=== PATIENT | male | born 1945 | race Hispanic/Latino ===

== ENCOUNTER 2017-04-24 14:26 | Emergency (ER) | payer MEDICARE, MEDICAID ==
[~2017-04-24] VITALS: Ht 177.8 cm; Wt 70.0 kg
[~2017-04-24 14:26] MED LIST: ATENOLOL25 MG PO; FLEXERIL OR; HYDROCO/APAP1 TA9 PO; METFORMIN500 MG PO; METOPROL TAR25 MG PO; NAPROSYN500 MG OR; NEOMYCIN; OXYBUTYNIN5 MG PO; OXYCOD-APAP1 TA1 PO; SIMVASTATIN10 MG PO; TAMSULOSIN0.4 MG PO; TYLENOL 8 HOUR650 MG PO; ULTRAM50 M1 PO; XARELTO10 MG PO; ZOFRAN ODT4 MG PO
[2017-04-24 15:17] LABS: HEMATOCRIT 36.2 % (39.0-50.0); HEMOGLOBIN 12.1 g/dl (14.0-18.0); IMMATURE GRANULOCYTES 0.2 % (0.0-1.0); MEAN CELL VOLUME 92.1 fL CALC (80.0-100.0); MEAN CORPUSCULAR HGB 30.8 pG CALC (26.0-32.0); MEAN CORPUSCULAR HGB CONC 33.4 g/L CALC (32.0-36.0); NEUT# 3.28 thou/uL (1.82-7.42); RED BLOOD COUNT 3.93 mill/uL (4.70-6.10); RED CELL DISTRI WIDTH 13.8 % (11.5-15.5)
[2017-04-24 15:54] LABS: ALBUMIN 3.7 g/dL (3.2-5.0); ALKALINE PHOSPHATASE 65 u/l (38-126); AMYLASE 32 u/l (30-110); ANION GAP 15 (6-22 (CALC)); BILIRUBIN, TOTAL 0.9 mg/dL (0.0-1.4); BUN 14 mg/dL (8-23); BUN/CREATININE RATIO 18 (12-20 (CALC)); CARBON DIOXIDE 28 mmol/l (22-30); CHLORIDE 104 mmol/l (95-108); CREATININE 0.8 mg/dL (0.7-1.3); GFR > 60 ML/MIN (>=60 (CALC)); GFR FOR AFR.AMER. > 60 ML/MIN (>=60 (CALC)); GLUCOSE 110 mg/dL (82-115); LIPASE 42 u/l (23-300); SGOT/AST 11 u/l (19-48); SGPT/ALT 21 u/l (11-66); SODIUM 143 mmol/l (137-146); TOTAL PROTEIN 6.8 g/dL (6.3-8.2)
[2017-04-24 16:06] LABS: MYOGLOBIN 30 ng/mL (0 - 121)
[2017-04-24 16:54] VITALS: BP 122/80
[2017-05-11] MEDS ORDERED: OMEPRAZOLE20 MG PO (07:52)
[2017-05-11] MEDS ORDERED: PERCOCET1 TA2 PO (09:37)
== END 2017-04-24 17:00 | disposition left against medical advice (07) ==
LOC: ED 14:26
PROVIDERS: Emergency Medicine
DX: R07.9 Chest pain, unspecified (principal); I10 Essential (primary) hypertension; I48.91 Unspecified atrial fibrillation; E78.00 Pure hypercholesterolemia, unspecified; N40.0 Benign prostatic hyperplasia without lower urinary tract symptoms; Z91.19 Patient's noncompliance with other medical treatment and regimen

== ENCOUNTER → 2017-05-11 | Day surgery (SDC) | payer MEDICARE, MEDICAID ==
[~2017-05-11] VITALS: Ht 177.8 cm; Wt 73.0 kg
[~2017-05-11] MED LIST changes: +OMEPRAZOLE20 MG PO; +PERCOCET1 TA2 PO
[2017-05-11 11:17] VITALS: BP 116/78
== END ==
LOC: ORM 04-17 09:00
PROVIDERS: ATTEND Surgery
PROC: 0YU50JZ Supplement Right Inguinal Region with Synthetic Substitute, Open Approach (ICD-10-PCS; principal; 2017-05-11)
DX: K40.90 Unilateral inguinal hernia, without obstruction or gangrene, not specified as recurrent (principal)
CPT/HCPCS: J2710

== ENCOUNTER 2017-08-01 12:08 | Emergency (ER) | payer MEDICARE, MEDICAID ==
[~2017-08-01] VITALS: Ht 177.8 cm; Wt 80.0 kg
[2017-08-01 13:50] LABS: INFLUENZA A NONE DETECTED (NONE DETECT); INFLUENZA B NONE DETECTED (NONE DETECT)
[2017-08-01] MEDS ORDERED: ZITHROMAX250 MG PO (14:33)
[2017-08-01 14:36] VITALS: BP 128/75
== END 2017-08-01 15:10 | disposition home or self-care (01) ==
LOC: ED 12:08
PROVIDERS: Emergency Medicine
DX: M79.89 Other specified soft tissue disorders (principal); J06.9 Acute upper respiratory infection, unspecified; I10 Essential (primary) hypertension; I48.91 Unspecified atrial fibrillation; E78.00 Pure hypercholesterolemia, unspecified; M79.605 Pain in left leg

== ENCOUNTER 2020-05-19 10:23 | Emergency (ER) | payer MEDICARE, MEDICAID ==
[~2020-05-19] VITALS: Ht 177.8 cm; Wt 72.0 kg
[~2020-05-19 10:23] MED LIST changes: +ZITHROMAX250 MG PO
[2020-05-19] MEDS ORDERED: NAPROXEN500 MG PO (10:42)
[2020-05-19 10:53] VITALS: BP 125/91
[2020-05-19] MEDS ORDERED: DICLOFENAC SODIUM1 % (11:04)
== END 2020-05-19 10:54 | disposition home or self-care (01) ==
LOC: ED 10:23
DX: M19.012 Primary osteoarthritis, left shoulder (principal); I10 Essential (primary) hypertension

== ENCOUNTER 2021-12-02 13:14 | Emergency (ER) | payer MEDICARE, MEDICAID ==
[2021-12-02] VITALS (8 sets, daily range): BP systolic 81–142; BP diastolic 62–95
[~2021-12-02] VITALS: Ht 170.2 cm; Wt 82.6 kg
[~2021-12-02 13:14] MED LIST changes: +DICLOFENAC SODIUM1 % TOP; +FLEXERIL5 M1 PO; +GABAPENTIN300 M2 PO; +NAPROXEN500 MG PO; +OXYBUTYNIN CHLO10 MG PO; +ULTRAM50 MG PO; +XARELTO20 MG PO
[2021-12-02 14:02] LABS: HEMATOCRIT 41.8 % (39.0-50.0); MEAN CELL VOLUME 97.2 fL CALC (80.0-100.0); MEAN CORPUSCULAR HGB 33.5 pG CALC (26.0-32.0); MEAN CORPUSCULAR HGB CONC 34.4 g/dL CAL (32.0-36.0); NEUT# 2.95 thou/uL (1.82-7.42); RED BLOOD COUNT 4.3 mill/uL (4.70-6.10)
[2021-12-02 14:03] LABS: HEMOGLOBIN 14.4 g/dl (14.0-18.0)
[2021-12-02] MEDS ORDERED: SIMVASTATIN10 MG PO (14:14)
[2021-12-02] MEDS ORDERED: XARELTO20 MG PO (14:14)
[2021-12-02 14:15] LABS: ALBUMIN 3.9 g/dL (3.2-5.0); ALKALINE PHOSPHATASE 50 u/l (38-126); ANION GAP 9 (6-22 (CALC)); BILIRUBIN, TOTAL 1.3 mg/dL (0.0-1.4); BUN 13 mg/dL (8-23); BUN/CREATININE RATIO 14 (12-20 (CALC)); CARBON DIOXIDE 27 mmol/l (22-30); CHLORIDE 106 mmol/l (95-108); CREATININE 0.9 mg/dL (0.7-1.3); GFR > 60 ML/MIN (>=60 (CALC)); GFR FOR AFR.AMER. > 60 ML/MIN (>=60 (CALC)); LIPASE 40 u/l (23-300); POTASSIUM 3.6 mmol/l (3.5-5.1); SGOT/AST 23 u/l (19-48); SODIUM 138 mmol/l (137-146); TOTAL PROTEIN 6.6 g/dL (6.3-8.2)
[2021-12-02] MEDS ORDERED: TAMSULOSIN0.4 MG PO (14:15)
[2021-12-02] MEDS ORDERED: METOPROL TAR25 MG PO (14:15)
[2021-12-02] MEDS ORDERED: OXYBUTYNIN CHLO10 MG PO (14:15)
[2021-12-02 14:18] LABS: INTERNATIONAL NORMALIZED RATIO 1.3 RATIO (0.7-1.3); PROTHROMBIN TIME 13.2 SECONDS (9.0-12.5)
[2021-12-02 14:26] LABS: MYOGLOBIN 42 ng/mL (0 - 121)
[2021-12-02] MEDS ORDERED: ONDANSETRON4 MG PO (16:04)
== END 2021-12-02 16:35 | disposition home or self-care (01) ==
LOC: ED 13:14
PROVIDERS: Nurse Practitioner
DX: R51.9 Headache, unspecified (principal); I10 Essential (primary) hypertension; I48.91 Unspecified atrial fibrillation; R11.0 Nausea; Z79.01 Long term (current) use of anticoagulants

== ENCOUNTER 2024-05-03 09:37 | Emergency (ER) | payer MEDICARE, MEDICAID ==
[~2024-05-03] VITALS: Ht 172.7 cm; Wt 77.0 kg
[2024-05-03] VITALS (9 sets, daily range): BP systolic 118–155; BP diastolic 79–96
[~2024-05-03 09:37] MED LIST changes: +DICLOFENAC SODIUM2 % TD; +ERYTHROMYCIN O3.5 GM OU; +MEDDOSEPAK PO; +ONDANSETRON4 MG PO; +PAXLOVID PO; +PREDNISONE10 MG PO; +TRAMADOL HYDROC50 M1 PO; +ZPAK PO
[2024-05-03] MEDS ORDERED: KETOROLAC TROMETHAMINE 30 MG/ML SDV IV ONE (10:00)
[2024-05-03] MEDS ORDERED: SODIUM CHLORIDE 0.9% 1,000 ML IV ONE (10:00)
[2024-05-03 10:18] LABS: BASO% 1.4 % (0-3); EOS% 2.9 % (0-8); HEMATOCRIT 41.7 % (39.0-50.0); IMMATURE GRANULOCYTES 0.2 % (0.0-5.0); LYMPH% 26.2 % (15-41); MEAN CELL VOLUME 98.6 fL CALC (80.0-100.0); MEAN CORPUSCULAR HGB 33.1 pG CALC (26.0-32.0); MEAN CORPUSCULAR HGB CONC 33.6 g/dL CAL (32.0-36.0); MONO% 10.9 % (2-13); NEUT# 2.58 thou/uL (1.82-7.42); NEUT% 58.4 % (42-76); RED BLOOD COUNT 4.23 mill/uL (4.70-6.10); RED CELL DISTRI WIDTH 12.5 % (11.5-15.5)
[2024-05-03 10:30] LABS: ALBUMIN 4.1 g/dL (3.2-5.0); BILIRUBIN, TOTAL 1.2 mg/dL (0.2-1.3); POTASSIUM 3.7 mmol/l (3.5-5.1); TOTAL PROTEIN 6.7 g/dL (6.3-8.2)
[2024-05-03 11:15] LABS: URINE BILIRUBIN - DIPSTICK Negative (NEGATIVE); URINE BLOOD DIPSTICK Trace-intact (NEGATIVE); URINE GLUCOSE - DIPSTICK >=1000 mg/dL (NEGATIVE); URINE KETONE Negative (NEGATIVE); URINE LEUK ESTERASE Negative (NEGATIVE); URINE NITRITE - DIPSTICK Negative (Negative); URINE PROTEIN - DIPSTICK Negative (NEG-TRACE)
[2024-05-03 11:17] LABS: URINE COLOR Yellow
== END 2024-05-03 12:49 | disposition home or self-care (01) ==
LOC: ED 09:37
PROVIDERS: Family Medicine
DX: R10.9 Unspecified abdominal pain (principal); I10 Essential (primary) hypertension; I48.91 Unspecified atrial fibrillation; E78.00 Pure hypercholesterolemia, unspecified

== ENCOUNTER 2024-07-28 12:41 | Emergency (ER) | payer MEDICARE, MEDICAID ==
[~2024-07-28] VITALS: Ht 172.7 cm; Wt 90.0 kg
[2024-07-28] VITALS (7 sets, daily range): BP systolic 117–136; BP diastolic 68–86
[2024-07-28 13:16] LABS: BASO% 1.1 % (0-3); EOS% 2.1 % (0-8); HEMATOCRIT 46.1 % (39.0-50.0); HEMOGLOBIN 15.2 g/dl (14.0-18.0); LYMPH% 26.1 % (15-41); MEAN CELL VOLUME 98.1 fL CALC (80.0-100.0); MEAN CORPUSCULAR HGB 32.3 pG CALC (26.0-32.0); MONO% 12.4 % (2-13); NEUT# 3.28 thou/uL (1.82-7.42); NEUT% 58.3 % (42-76); RED BLOOD COUNT 4.7 mill/uL (4.70-6.10); RED CELL DISTRI WIDTH 12.8 % (11.5-15.5)
[2024-07-28 13:30] LABS: ALBUMIN 4.3 g/dL (3.2-5.0); ALKALINE PHOSPHATASE 58 u/l (38-126); ANION GAP 15 (6-22 (CALC)); BILIRUBIN, TOTAL 1.5 mg/dL (0.2-1.3); BUN 25 mg/dL (8-23); BUN/CREATININE RATIO 27 (12-20 (CALC)); CARBON DIOXIDE 28 mmol/l (22-30); CHLORIDE 103 mmol/l (95-108); CREATININE 0.9 mg/dL (0.7-1.3); ESTIMATED GFR 87 ML/MIN (>=90 (CALC)); POTASSIUM 3.8 mmol/l (3.5-5.1); SGOT/AST 28 u/l (19-48); SODIUM 141 mmol/l (137-146)
[2024-07-28] MEDS ORDERED: ZPAK PO (14:05)
== END 2024-07-28 14:23 | disposition home or self-care (01) ==
LOC: ED 12:41
PROVIDERS: Family Medicine
DX: J06.9 Acute upper respiratory infection, unspecified (principal); I10 Essential (primary) hypertension; I48.91 Unspecified atrial fibrillation; E78.00 Pure hypercholesterolemia, unspecified; Z20.822 Contact with and (suspected) exposure to COVID-19

== ENCOUNTER 2024-09-26 20:36 | Emergency (ER) | payer MEDICARE, MEDICAID ==
[~2024-09-26] VITALS: Ht 172.7 cm; Wt 60.0 kg
[2024-09-26] MEDS ORDERED: KETOROLAC TROMETHAMINE 30 MG/ML SDV IM ONE (21:55)
[2024-09-26] MEDS ORDERED: ACETAMINOPHEN 500 MG TAB PO ONE (21:55)
[2024-09-26] MEDS ORDERED: VOLTAREN - GENE75 MG PO (22:58)
[2024-09-26 23:32] VITALS: BP 145/89
== END 2024-09-26 23:32 | disposition home or self-care (01) ==
LOC: ED 20:36
DX: M17.11 Unilateral primary osteoarthritis, right knee (principal); I10 Essential (primary) hypertension; I48.91 Unspecified atrial fibrillation; E78.5 Hyperlipidemia, unspecified

== ENCOUNTER 2024-10-20 12:36 | Emergency (ER) | payer MEDICARE, MEDICAID ==
[~2024-10-20] VITALS: Ht 172.7 cm; Wt 78.0 kg
[~2024-10-20 12:36] MED LIST changes: +VOLTAREN - GENE75 MG PO
[2024-10-20] MEDS ORDERED: KETOROLAC TROMETHAMINE 30 MG/ML SDV IM ONE (13:50)
[2024-10-20] MEDS ORDERED: ORPHENADRINE CITRATE 30 MG/ML AMP IM ONE (13:50)
[2024-10-20] MEDS ORDERED: METHOCARBAMOL500 MG PO (15:15)
[2024-10-20] MEDS ORDERED: NAPROXEN500 MG PO (15:15)
[2024-10-20 15:30] VITALS: BP 135/80
== END 2024-10-20 15:30 | disposition home or self-care (01) ==
LOC: ED 12:36
DX: M54.32 Sciatica, left side (principal); I10 Essential (primary) hypertension; I48.91 Unspecified atrial fibrillation; E78.00 Pure hypercholesterolemia, unspecified
CPT/HCPCS: J1100; J2360